=== PATIENT | male | born 1955 | race Caucasian/White ===

== ENCOUNTER 2017-03-08 16:37 | Emergency (ER) | payer BC ==
[2017-03-08 17:54] VITALS: BP 160/108
--- NOTE | 2017-03-15 16:53 | UC ---
Respiratory Complaint HPI - HPI Summary HPI Summary: 61 year old male presents with ongoing cough. - History of Current Complaint Chief Complaint: UCGeneralIllness Stated Complaint: ON GOING COUGH Time Seen by Provider: 03/08/17 17:21 Hx From Patient Unobtainable Due To: Altered Mental Status Pain Intensity: 0 Pain Scale Used: 0-10 Numeric - Allergies/Home Medications Allergies/Adverse Reactions: Allergies Allergy/AdvReac Type Severity Reaction Status Date / Time Penicillins Allergy Rash Verified 03/08/17 17:21 Home Medications: Home Medications Cholecalciferol [Vitamin D3 Ultra Strength] 5,000 unit PO DAILY 03/08/17 [ History Confirmed 03/08/17] PMH/Surg Hx/FS Hx/Imm Hx - Surgical History Surgical History: Yes Surgery Procedure, Year, and Place: ACHILLES TENDON. CHOLECYSTECTOMY. T & A. DEVIATED SEPTUM REPAIN--SOME COMPLICATIONS - Social History Alcohol Use: Weekly Substance Use Type: None Smoking Status (MU): Current Some Day Smoker Type: Cigars Amount Used/How Often: 2 X PER YR. Length of Time of Smoking/Using Tobacco: ON AND OFF FOR 42 YRS Have You Smoked in the Last Year: Yes Review of Systems Constitutional: Negative Skin: Negative Eyes: Negative ENT: Negative Respiratory: Cough Cardiovascular: Negative Gastrointestinal: Negative Genitourinary: Negative Motor: Negative Neurovascular: Negative Musculoskeletal: Negative Neurological: Negative Psychological: Negative All Other Systems Reviewed And Are Negative: Yes Physical Exam Triage Information Reviewed: Yes Vital Signs: Initial Vital Signs Temp 36.9 C 03/08/17 17:14 Pulse 73 03/08/17 17:14 Resp 16 03/08/17 17:14 BP 160/108 03/08/17 17:14 Pulse Ox 98 03/08/17 17:14 Eye Exam: Normal ENT: Positive: Pharyngeal erythema, Nasal congestion, Nasal drainage Dental Exam: Normal Neck exam: Normal Neck: Positive: 1 Respiratory Exam: Normal Cardiovascular Exam: Normal Abdominal Exam: Normal Musculoskeletal Exam: Normal Neurological Exam: Normal Psychological Exam: Normal Skin Exam: Normal UC Diagnostic Evaluation - Laboratory O2 Sat by Pulse Oximetry: 98 Respiratory Course/Dx - Differential Dx/Diagnosis Provider Diagnoses: allergic rhinnitis Discharge - Discharge Plan Condition: Stable Disposition: HOME Prescriptions: Azithromyxin JACKLYN (NF) [Z-Jacklyn (Zithromax) 250 mg tabs #6] 2 tab PO .TODAY, THEN 1 DAILY #6 tab LoraTADine TAB(NF) [Claritin 10 MG TAB(NF)] 10 mg PO DAILY #30 tab Methylprednisolone [Medrol Dosepak 4 MG*] 4 mg PO .SEE JACKLYN INSTRUCTION #21 tab guaiFENesin/CODIEN 100MG-10MG* [Robitussin AC 100Mg-10Mg*] 5 ml PO Q6H PRN #120 udc MDD 20 ml PRN Reason: Cough Patient Education Materials: Acute Bronchitis (ED), Cold Symptoms (ED) Referrals: Naseem Nguyen DO [Primary Care Provider] -
== END 2017-03-08 17:49 | disposition home or self-care (01) ==
LOC: UCCORT 16:37
DX: J30.9 Allergic rhinitis, unspecified (principal); R41.82 Altered mental status, unspecified; Z88.0 Allergy status to penicillin; Z72.0 Tobacco use
CPT/HCPCS: 99201; G0463

== ENCOUNTER 2019-09-14 17:47 | Emergency (ER) | payer BC ==
[2019-09-14 19:36] VITALS: BP 132/87
--- NOTE | 2019-09-14 19:47 | UC ---
Respiratory Complaint HPI - HPI Summary HPI Summary: 63-year-old male presents with complaints of 2 week history of a cough. States cough was initially productive for some clear sputum but over the last 3-4 days cough has gotten more harsh the sputum has begin to turn to a yellowish color. Symptoms are associated with some mild nasal congestion and postnasal drip. Denies fever, chills, ear pain, sore throat, chest pain, palpitations, edema, shortness of breath, abdominal pain, nausea, or vomiting. - History of Current Complaint Chief Complaint: UCRespiratory Stated Complaint: COUGH Time Seen by Provider: 09/14/19 19:44 Hx Obtained From: Patient Pain Intensity: 0 - Allergies/Home Medications Allergies/Adverse Reactions: Allergies Allergy/AdvReac Type Severity Reaction Status Date / Time Penicillins Allergy Rash Verified 09/14/19 19:40 Home Medications: Home Medications amLODIPine TAB* [Norvasc 5 mg TAB*] 10 mg PO DAILY 09/14/19 [History Confirmed 09/14/19] PMH/Surg Hx/FS Hx/Imm Hx Previously Healthy: Yes Cardiovascular History: Hypertension - Surgical History Surgical History: Yes Surgery Procedure, Year, and Place: ACHILLES TENDON. CHOLECYSTECTOMY. T & A. DEVIATED SEPTUM REPAIN--SOME COMPLICATIONS - Family History Known Family History: Positive: Non-Contributory - Social History Occupation: Retired Lives: With Family Alcohol Use: Weekly Substance Use Type: None Smoking Status (MU): Never Smoked Tobacco Type: Cigars Amount Used/How Often: 2 X PER YR. Length of Time of Smoking/Using Tobacco: ON AND OFF FOR 42 YRS Have You Smoked in the Last Year: Yes Review of Systems All Other Systems Reviewed And Are Negative: Yes Constitutional: Negative: Fever, Chills Eyes: Negative: Drainage, Eye Redness ENT: Positive: Nasal Discharge, Sinus Congestion. Negative: Sore Throat, Ear Ache, Sinus Pain/Tenderness Respiratory: Positive: Cough. Negative: Shortness Of Breath Cardiovascular: Negative: Palpitations, Chest Pain Gastrointestinal: Negative: Abdominal Pain, Vomiting, Nausea Genitourinary: Positive: Negative Musculoskeletal: Positive: Negative Neurological: Positive: Negative Is Patient Immunocompromised?: No Physical Exam - Summary Physical Exam Summary: GENERAL APPEARANCE: Well developed, well nourished, alert and cooperative, and appears to be in no acute distress. EYES: Conjunctiva clear. No drainage. EARS: External auditory canals and tympanic membranes clear, hearing grossly intact. NOSE: Mild nasal congestion. No nasal discharge. THROAT: Pharynx normal. Tonsils surgically absent. Uvula midline. NECK: Neck supple, non-tender without lymphadenopathy. CARDIAC: Normal S1 and S2. No S3, S4 or murmurs. Rhythm is regular. There is no peripheral edema, cyanosis or pallor. Extremities are warm and well perfused. Capillary refill is less than 2 seconds. Peripheral pulses intact. LUNGS: Clear to auscultation without rales, rhonchi, wheezing or diminished breath sounds. Loose nonproductive cough. ABDOMEN: Positive bowel sounds. Soft, nondistended, nontender. No guarding or rebound. No masses or hepatosplenomegally. MUSKULOSKELETAL: ROM intact to all extremities. No joint erythema or tenderness. Normal muscular development. Normal gait. SKIN: Skin normal color, texture and turgor with no lesions or eruptions. Triage Information Reviewed: Yes Vital Signs: Initial Vital Signs Temp 97.9 F 09/14/19 19:32 Pulse 61 09/14/19 19:32 Resp 16 09/14/19 19:32 BP 132/87 09/14/19 19:32 Pulse Ox 99 09/14/19 19:32 Vital Signs Reviewed: Yes Respiratory Course/Dx - Course Course Of Treatment: 63-year-old male presents with complaints of 2 week history of a cough. States cough was initially productive for some clear sputum but over the last 3-4 days cough has gotten more harsh the sputum has begin to turn to a yellowish color. Symptoms are associated with some mild nasal congestion and postnasal drip. Denies fever, chills, ear pain, sore throat, chest pain, palpitations, edema, shortness of breath, abdominal pain, nausea, or vomiting. Afebrile. Mildly hypertensive otherwise vital signs stable. Patient had some mild nasal congestion, normal TMs, normal pharynx, surgically absent tonsils, no cervical lymphadenopathy, clear bilateral breath sounds, loose nonproductive cough, and otherwise unremarkable exam. Discussed with patient that his symptoms are consistent with acute bronchitis and considering the duration and worsening of his symptoms will start him on a course of azithromycin as well as provide him with Tessalon Perles one capsule every 8 hours as needed for cough. He is to follow-up with his primary care provider in 3-5 days if symptoms are not improving. Anticipatory guidance and warning symptoms were reviewed with the patient. Verbalizes understanding and agrees with plan of care. - Differential Dx/Diagnosis Differential Diagnosis/HQI/PQRI: Bronchitis, Lower Resp Infection, Other - URI Provider Diagnosis: Acute bronchitis Discharge ED - Sign-Out/Discharge Documenting (check all that apply): Patient Departure All imaging exams completed and their final reports reviewed: No Studies - Discharge Plan Condition: Stable Disposition: HOME Prescriptions: Azithromyxin JACKLYN (NF) [Z-Jacklyn (Zithromax) 250 mg tabs #6] 2 tab PO .TODAY, THEN 1 DAILY #6 tab Benzonatate CAP* [Tessalon 100 MG CAP*] 100 mg PO TID PRN #21 cap PRN Reason: Cough Patient Education Materials: Acute Bronchitis (ED) Referrals: Khang Napoles DO [Primary Care Provider] - 3 Days (If no improvement in symptoms.) Additional Instructions: Your history and exam are consistent with acute bronchitis. Considering the duration and worsening of symptoms we will start you on an antibiotic to treat the infection. Start azithromycin 2 tabs today then 1 tab a day for the next 4 days. Take Tessalon Perles 1 cap every 8 hours as needed for cough. Be aware that the cough with bronchitis may persist for 2-3 weeks even after treatment. Get plenty of rest. Drink plenty of fluids. Run a cool mist humidifer in your room at night. Take over the counter acetaminophen (Tylenol) or ibuprofen (Advil, Motrin) according to directions as needed for pain or fever. Follow up with your primary care provider in 3-5 days if symptoms do not improve. Seek immediate medical attention in the emergency room if you have fever greater than 100.5 F despite taking acetaminophen or ibuprofen, have chest pain , difficulty breathing, or have any worsening of symptoms. - Billing Disposition and Condition Condition: STABLE Disposition: Home
== END 2019-09-14 20:02 | disposition home or self-care (01) ==
LOC: UCCORT 17:47
DX: J20.9 Acute bronchitis, unspecified (principal); I10 Essential (primary) hypertension; J02.9 Acute pharyngitis, unspecified; R09.82 Postnasal drip; H92.09 Otalgia, unspecified ear; R09.81 Nasal congestion; Z79.899 Other long term (current) drug therapy; Z88.0 Allergy status to penicillin
CPT/HCPCS: 99212; G0463